=== PATIENT | male | born 2000 | race Two or more races ===

== ENCOUNTER 2025-03-24 13:46 | Emergency (ER) | payer SELFPAY ==
[2025-03-24 13:54] VITALS: BP 134/77; PULSE 78; RESP 20; TEMP 36.5; O2SAT 98
--- NOTE | 2025-03-24 14:05 | XR_ITS ---
Examination: Fingers, right hand fourth digit 3 views 3 views Technique: AP, oblique, lateral views right hand third fourth 3 views. Exam date and time: March 24, 2025 1406 hours INDICATIONS: Crush injury to the hand today fourth digit pain. FINDINGS: Comminuted fractures with mild offset ungual tuft tip distal phalanx fourth digit IMPRESSION: Comminuted fractures ungual tuft tip distal phalanx fourth digit
--- NOTE | 2025-03-24 14:06 | EDNOTE_ITS ---
<Statement entered by Smita Webber MD - 04/03/25 11:09> As co-signing physician, I was present and available for consult prn. I concur with the plan and care as documented by the midlevel provider. Upper Extremity Injury RME/HPI General Chief Complaint: Hand/Wrist Problems Stated Complaint: RIGHT HAND INJURY Time Seen by Provider: 03/24/25 13:55 Arrival date/time: 03/24/25 13:46 RME / HPI RME / HPI narrative: 24-year-old male patient came in for evaluation regarding right ring finger injury. Injury sustained about few minutes prior to ER visit as pain to the right index finger, after patient finger got pinned down with a hammer metal. While working described as sharp pain, severity moderate. Denies any other complaints. Related Data Previous Rx's ?Medication ?Instructions ?Recorded cephalexin 500 mg capsule 500 mg PO Q8H 7 days #21 cap s 03/24/25 ibuprofen 800 mg tablet 800 mg PO Q8H PRN pain #30 t abs 03/24/25 Allergies Allergy/AdvReac Type Severity Reaction Status Date / Time No Known Allergies Allergy Verified 03/24/25 13:49 Review of Systems Review of Systems Narrative Review of Systems: Review of system reviewed and within normal limits except mentioned in HPI ED Exam Narrative Physical exam: VITAL SIGNS: Reviewed. GENERAL APPEARANCE: Alert and interactive, follows commands, no acute distress, HEAD AND FACE: Non-traumatic. ENT: PERRL, pink conjunctivitis, eyelid no trauma, Mucous membrane moist. NECK: Supple, nontender, no nuchal rigidity. CHEST: No tenderness, no crepitus, no paradoxical movement, no retractions. LUNGS: Clear, well ventilated, symmetric, no rales, no wheezing, no ronchi, no stridor, good breath sounds bilaterally. HEART: Regular rate, regular rhythm, no murmur, no gallops. ABDOMEN: Soft, positive bowel sounds, nondistended, no guarding, nontender, no rebound, no masses, RECTAL: Deferred. GENITAL: Deferred. NEUROLOGICAL: Gross motor function intact sensory function intact, Appropriate for age. MUSCULOSKELETAL: low back nontender, full range of motion. EXTREMITIES: + Right index finger crush injury, with nail involvement, full range of motion. SKIN: Color pink, dry, no rash, no lacerations, no abrasions, no contusions. LYMPHATICS: Deferred. Course Quality Measures none Orders Category Date Time Status XR finger RT min 2V Stat Exams 03/24/25 14:05 Completed Ketorolac Inj [Toradol Inj] Med 03/24/25 14:05 Discontinued 30 mg IM X1 ONE Lidocaine 1% 20 ml [Xylocaine 1% 20 ML] Med 03/24/25 14:05 Discontinued 10 ml INFL X1 ONE TET,DIP/PERT AC (Adult)-Tdap [Boostrix Adult (Tdap) Med 03/24/25 14:05 Di scontinued Vacc] 0.5 ml IMI .ONCE ONE cephALEXin [Keflex] Med 03/24/25 15:56 Discontinued 500 mg PO X1 ONE Vital Signs Vital signs: Vital Signs Temperature 97.7 F 03/24/25 13:54 Pulse Rate 78 03/24/25 13:54 Respiratory Rate 20 03/24/25 13:54 Blood Pressure 134/77 H 03/24/25 13:54 Pulse Oximetry (%) 98 03/24/25 13:54 Oxygen Delivery Method Room Air 03/24/25 13:54 Extremity Injury MDM Narrative MDM Narrative:: 24-year-old male patient came in for evaluation regarding right ring finger injury. Injury sustained about few minutes prior to ER visit as pain to the right index finger, after patient finger got pinned down with a hammer metal. While working described as sharp pain, severity moderate. Denies any other complaints. x-ray of your finger showed comminuted fracture of the distal phalanx right ring finger. Suturing is not needed at this time, patient had crush injury. Dressing was applied and splint applied. Patient was also given Keflex in the ED. Patient wound will heal on secondary intention. Patient data External records reviewed:: None Clinical information provided by:: patient Social determinants that could affect healthcare access:: none Patient has the following chronic illnesses:: None How is presenting disease/condition affected by chronic disease/condition?: no chronic disease Evaluation data The following diagnostics were reviewed and interpreted by me:: radiology exam(s) Lab and/or radiology exams considered but not ordered:: None Interpretation Summary: See results MDM Medications / Prescriptions Medications or Prescriptions considered but not ordered:: None Medication administrations:: Medication Administration History Discontinued Medications Cephalexin HCl (Cephalexin 250 Mg Capsule) 500 mg PO X1 ONE Stop: 03/24/25 15:57 Last Admin: 03/24/25 16:21 Dose: 500 mg Documented By: PO Diphtheria/Tetanus/Acell Pertussis (Diphth,Pertuss(Acell),Tet Vac 0.5 Ml Syr- Adult) 0.5 ml IMi .ONCE ONE Stop: 03/24/25 14:06 Last Admin: 03/24/25 14:42 Dose: 0.5 ml Documented By: PO Ketorolac Tromethamine (Ketorolac Inj 60 Mg/2 Ml Vial) 30 mg IM X1 ONE Stop: 03/24/25 14:06 Last Admin: 03/24/25 14:41 Dose: 30 mg Documented By: PO Lidocaine HCl (Lidocaine Hcl 1% 20 Ml Vial) 10 ml INFL X1 ONE Stop: 03/24/25 14:06 Last Admin: 03/24/25 16:22 Dose: Not Given Documented By: PO Non-Admin Reason: Other, see note Comments: NOT NEEDED BY PROVIDER Toradol, Boostrix and Keflex Consultations Consultation(s) initiated? (list below): No Diagnosis Upper Extremity Injury Differential Diagnosis: finger sprain and other (Crush injury finger, finger fracture) Most likely diagnosis given after review of the tests above:: Crush injury finger, distal phalanx fracture finger right ring Admission Indicated Admission indicated?: not indicated Admission Request Was there a request for admission?: No Disposition Plan Disposition Plan: Discharge Discharge Attestation Discharge Attestation: The patient was given an opportunity to ask questions and understood the discharge instructions. Discharge instructions specifically effects, indications for sooner follow up or return to the emergency department, and the expected course of current diagnosis. Patient condition: Stable Discharge Plan Plan Patient Disposition: HOME (Self Care) Discharge Disposition comment: Stable Prescriptions/Referrals Prescriptions/Med Rec: New cephalexin 500 mg capsule 500 mg PO Q8H 7 Days Qty: 21 0RF ibuprofen 800 mg tablet 800 mg PO Q8H PRN (Reason: pain) Qty: 30 0RF Referrals: No Primary/Family,Physician [Primary Care Provider] - In 1 week Problem List Clinical Impression: Crush injury to finger, Fracture of distal phalanx of finger Patient/Caregiver Discharge Instructions Discharge Activity: activity as tolerated Education Materials: How [employer] He[facility] Additional Instructions: Thank you for the opportunity for serving you today. You are stable for discharged . You are advised to: Follow-up with your Worker's Comp. in 1 to 2 days Return to ED for worsening of symptoms Increase oral fluids Take medication as prescribed Daily dressing with bacitracin as needed Wear your splint for the next 4 weeks Print Language: Paraguayan Stand Alone Forms: Radha Award Info., Patient Portal Info Letter PA/KALLIE Supervising Physician HARLEY/KALLIE Supervising Physician: MD Juliette
[2025-03-24] MEDS: KETOROLAC INJ 60 MG/2 ML VIAL 30 MG IM (14:41)
[2025-03-24] MEDS: DIPHTH,PERTUSS(ACELL),TET VAC 0.5 ML SYR- ADULT IMi (14:42)
[2025-03-24 16:39] VITALS: BP 117/62; PULSE 68; RESP 16; TEMP 36.5; O2SAT 99
== END 2025-03-24 16:40 | disposition home or self-care (01) ==
PROVIDERS: Emergency Provider Emergency Medicine
DX: S62.634A Displaced fracture of distal phalanx of right ring finger, initial encounter for closed fracture (principal); W23.0XXA Caught, crushed, jammed, or pinched between moving objects, initial encounter; Z23 Encounter for immunization
CPT/HCPCS: 73140; 90471; 90715; 96372; 99283; J1885; A9270

== ENCOUNTER 2025-03-29 15:36 | Emergency (ER) | payer SELFPAY ==
[2025-03-29 15:55] VITALS: BP 114/75; PULSE 78; RESP 18; TEMP 36.7; O2SAT 97; BMI 27.3
--- NOTE | 2025-03-29 16:24 | EDNOTE_ITS ---
ED Recheck Abnl Lab Rx-RME/HPI General Chief Complaint: General Adult/Misc Complain Stated Complaint: FINGER PAIN Time Seen by Provider: 03/29/25 15:38 Source: patient Arrival date/time: 03/29/25 15:36 24-year-old male with no known medical history presents to the emergency room for wound recheck as he was seen here a week ago the wound to his finger Mode of arrival: ambulatory Limitations: no limitations Related Data Previous Rx's ?Medication ?Instructions ?Recorded cephalexin 500 mg capsule 500 mg PO Q8H 7 days #21 cap s 03/24/25 ibuprofen 800 mg tablet 800 mg PO Q8H PRN pain #30 t abs 03/24/25 Allergies Allergy/AdvReac Type Severity Reaction Status Date / Time No Known Allergies Allergy Verified 03/24/25 13:49 Review of Systems Review of Systems Systems Reviewed: All systems reviewed, normal except as documented Constitutional Constitutional: Reports system reviewed and no additional complaints, except as documented, Denies fatigue, Denies fever(s), Denies headache(s) and Denies weakness Eyes Eyes: Reports system reviewed and no additional complaints, except as documented, Denies blurry vision and Denies change in vision ENT Ears, Nose, Mouth, and Throat: Reports system reviewed and no additional complaints, except as documented, Denies otalgia, Denies headache(s), Denies nasal congestion, Denies throat swelling and Denies vertigo Cardiovascular Cardiovascular: Reports system reviewed and no additional complaints, except as documented, Denies chest pain, Denies dyspnea and Denies dyspnea on exertion Respiratory Respiratory: Reports system reviewed and no additional complaints, except as documented, Denies chest congestion, Denies cough, Denies dyspnea, Denies dyspnea on exertion and Denies wheezing Gastrointestinal Gastrointestinal: Reports system reviewed and no additional complaints, except as documented, Denies abdominal pain, Denies cramping, Denies nausea and Denies vomiting Genitourinary Genitourinary: Reports system reviewed and no additional complaints, except as documented, Denies dysuria and Denies hematuria Musculoskeletal Musculoskeletal: Reports system reviewed and no additional complaints, except as documented and Denies back pain Integumentary/Breasts Skin/Breast: Reports system reviewed and no additional complaints, except as documented and Denies wounds Neurologic Neurologic: Reports system reviewed and no additional complaints, except as documented, Denies confusion, Denies headache(s), Denies lack of coordination, Denies vertigo and Denies weakness Psychiatric Psychiatric: Reports system reviewed and no additional complaints, except as documented, Denies anxiety, Denies confusion, Denies depression, Denies paranoia, Denies suicidal ideation and Denies tactile hallucinations Endocrine Endocrine: Reports system reviewed and no additional complaints, except as documented and Denies fatigue Hematologic/Lymphatic Hematologic/Lymphatic: Reports system reviewed and no additional complaints, except as documented and Denies lymphadenopathy Allergic/Immunologic Allergic/Immunologic: Reports system reviewed and no additional complaints, except as documented, Denies throat swelling, Denies urticaria and Denies wheezing Past Medical History Social History SMOKING STATUS: Current some day smoker ED Exam General Limitations: Present no limitations General appearance: Present alert and in no apparent distress Head Head exam: Present atraumatic Eye Eye exam: Present normal appearance, PERRL and EOMI ENT ENT exam: Present normal exam, normal oropharynx and mucous membranes moist Neck Neck exam: Present normal inspection, full ROM and trachea midline Chest Chest inspection: Present normal inspection and symmetric chest wall rise Respiratory Respiratory exam: Present normal lung sounds bilaterally Cardiovascular Cardiovascular exam: Present regular rate, normal rhythm and normal heart sounds Abdominal Exam Abdominal exam: Present soft and normal bowel sounds Extremities Exam Extremities exam: Present normal inspection and full ROM Back Exam Back exam: Present normal inspection and full ROM Neurological Exam Neurological exam: Present alert, oriented X3 and CN II-XII intact Psychiatric Psychiatric exam: Present normal affect and normal mood Skin Skin exam: Present warm, dry, intact and normal color Course Quality Measures none Vital Signs Vital signs: Vital Signs Temperature 98.0 F 03/29/25 15:55 Pulse Rate 78 03/29/25 15:55 Respiratory Rate 18 03/29/25 15:55 Blood Pressure 114/75 03/29/25 15:55 Pulse Oximetry (%) 97 03/29/25 15:55 Oxygen Delivery Method Room Air 03/29/25 15:55 Recheck / Abnormal Lab / Rx MDM Narrative MDM Narrative:: 24-year-old male with no known medical history presents to the emergency room for wound recheck as he was seen here a week ago the wound to his finger Patient is hemodynamically stable and in no apparent distress Patient is afebrile nontachycardic nontachypneic Physical examination shows a wound to his finger that is healing appropriately. The wound has scabs that are closed. There is no evidence of any infection there is no pus drainage erythema or any red streaking down the fingers. The patient has been taking his antibiotics as prescribed. The patient has a fracture to the fingertip and the patient has a covered with gauze and has a finger brace. The wound was examined and redressed and the patient was discharged Patient was discharged and educated to follow-up with primary care provider in the next 24 to 48 hours and return to the emergency room for any evidence of worsening signs or symptoms Patient data External records reviewed:: [facility] previous records Clinical information provided by:: patient Social determinants that could affect healthcare access:: none Patient has the following chronic illnesses:: No chronic illness How is presenting disease/condition affected by chronic disease/condition?: no chronic disease Evaluation data The following diagnostics were reviewed and interpreted by me:: lab results and radiology exam(s) Lab and/or radiology exams considered but not ordered:: Labs and radiology exams considered and ordered Interpretation Summary: N/A Medications / Prescriptions Medications or Prescriptions considered but not ordered:: No medication given Medication administrations:: No medication given Consultations Consultation(s) initiated? (list below): No Diagnosis Recheck Differential Diagnosis: encounter for wound recheck and other (Infected wound) Most likely diagnosis given after review of the tests above:: Encounter for wound recheck Admission Indicated Admission indicated?: not indicated Admission Request Was there a request for admission?: No Disposition Plan Disposition Plan: Discharge Discharge Attestation Discharge Attestation: The patient and all family members were given an opportunity to ask questions and understood the discharge instructions. Discharge instructions specifically effects, indications for sooner follow up or return to the emergency department, and the expected course of current diagnosis. Patient condition: Stable Discharge Plan Plan Patient Disposition: HOME (Self Care) Discharge Disposition comment: Stable Prescriptions/Referrals Prescriptions/Med Rec: No Action cephalexin 500 mg capsule 500 mg PO Q8H 7 Days Qty: 21 0RF ibuprofen 800 mg tablet 800 mg PO Q8H PRN (Reason: pain) Qty: 30 0RF Problem List Clinical Impression: Encounter for re-check of laceration wound Patient/Caregiver Discharge Instructions Additional Instructions: Please follow-up with your primary care provider next 24 to 48 hours Please keep your wound clean and dry For any evidence of worsening signs or symptoms please return to the emergency room immediately Print Language: Welsh Stand Alone Forms: Radha Award Info., Patient Portal Info Letter PA/BACKUP ADMINISTRATOR Supervising Physician PA/BACKUP ADMINISTRATOR Supervising Physician: Dr. Barron
== END 2025-03-29 16:38 | disposition home or self-care (01) ==
LOC: SERX 16:34
PROVIDERS: Emergency Provider Emergency Medicine
DX: S61.219D Laceration without foreign body of unspecified finger without damage to nail, subsequent encounter (principal); X58.XXXD Exposure to other specified factors, subsequent encounter
CPT/HCPCS: 99281